=== PATIENT | female | born 1975 | race Caucasian/White ===

== ENCOUNTER 2025-02-13 08:25 | Day surgery (SDC) | payer OTHER ==
[~2025-02-13] VITALS: Ht 160 cm; Wt 57.0 kg
--- NOTE | ~2025-02-13 | OR ---
[facility] [address] [place], [place] [address] Draft DATE OF OPERATION: 02/13/2025 SURGEON: Daniel Schilling DO PREOPERATIVE DIAGNOSIS: Colon cancer screening. POSTOPERATIVE DIAGNOSES: 1. Colon cancer screening with a colonic polyp at 65 cm. 2. Diverticulosis. PROCEDURE PERFORMED: Colonoscopy with cold forceps biopsy of the polyp at 65 cm. ANESTHESIA: IV sedation. ESTIMATED BLOOD LOSS: None. DRAINS: None. COMPLICATIONS: None. DESCRIPTION OF THE PROCEDURE: The patient was brought to the GI lab, placed in supine position. After induction of IV sedation, the patient was then placed in the left lateral position, padded to the satisfaction of anesthesia. The Olympus video colonoscope was then introduced into the rectum, and while insufflating and under direct visualization, the scope was advanced through the rectosigmoid, sigmoid colon, descending colon, transverse colon, into the ascending colon and cecum. The colon was insufflated, and inspection of the mucosal surfaces was carried out. Ascending colon and cecum were without lesions or ulcerations. Scope was brought past the hepatic flexure and the transverse colon. No intrinsic or extrinsic masses, lesions, or ulcerations were noted. Scope was brought back past the splenic flexure into the descending colon. At approximately 65 cm, a flat broad-based polyp was identified. Multiple cold biopsies with cold forceps were utilized, passed off the field for pathologic review. The sigmoid colon was found to have some evidence of diverticulosis, and no bleeding was noted. No other intrinsic PATIENT NAME: ANGELO HERNANDEZ OPERATIVE REPORT DATE OF : 79 REPORT #: [id number] PHYSICIAN: DANIEL SCHILLING DO PCP: HANK MILLER PAC REPORT IS CONFIDENTIAL AND NOT TO BE RELEASED WITHOUT AUTHORIZATION [place] [id number] [place], [place] [address] Draft masses were noted. No diverticulitis was noted as well. The rectosigmoid was unremarkable except for diverticulum as well. The scope was withdrawn. The patient tolerated the procedure well, taken to recovery room in satisfactory condition. DO KESHAWN Miner/KAPIL /[id number] Copies: ~ PATIENT NAME: ANGELO HERNANDEZ OPERATIVE REPORT DATE OF : 79 REPORT #: [id number] PHYSICIAN: DANIEL SCHILLING DO PCP: HANK MILLER PAC REPORT IS CONFIDENTIAL AND NOT TO BE RELEASED WITHOUT AUTHORIZATION
[~2025-02-13 08:25] MED LIST: IBLOOD GLUCOSE TEST STRIP 1 EA TEST VI PRN; LACTATED RINGER'S 1,000 ML IV SCH; LIDOCAINE HCL 1% 5 ML SDV INJ ONE; LIDOCAINE HCL 2% 5 ML SDV ONE
[2025-02-13 08:39] VITALS: BP 107/68
--- NOTE | 2025-02-13 11:12 | NUR ---
02/13/25 1112 Sahara Bradshaw 1108-PATIENT ARRIVED TO PACU ON 2L NC RR EVEN. PATIENT REACTIVE TO VERBAL STIMULI MOVING HANDS. ORIENTED TO PACU VERY DROWSY BACK TO SLEEP. 2L NC RR EVEN 100% SR HR 70'S. IVF INFUSING. ABDOMEN SOFT.
[2025-02-13 11:50] VITALS: BP 114/72
--- NOTE | 2025-02-18 14:01 | PATH ---
[facility] [address] [place], [place] [address] Signed SPECIMEN(S): A COLON POLYP AT 55CM SPECIMEN SOURCE: A. COLON POLYP AT 55CM CLINICAL HISTORY: Screening. Post-polyp, diverticulosis A) polyp FINAL PATHOLOGIC DIAGNOSIS: Colon polyp at 55 cm: - Polypoid fragment of benign colonic mucosa. - No colitis or neoplasm identified. [facility]ALTH SYSTEM MICROSCOPIC EXAMINATION: Histologic sections of all submitted blocks are examined by light microscopy. These findings, together with the gross examination, support the pathologic diagnosis. GROSS DESCRIPTION: The specimen, labeled and designated "Debra, colon polyp at 55 cm," is received in formalin and consists of two kaye soft tissue fragments, ranging from 0.2-0.3 cm. Entirely submitted in (A1). AB (under the direct supervision of a pathologist) The Gross Description was prepared using a voice recognition system. The report was reviewed for accuracy; however, sound-alike word errors, addition and/or deletions may occur. If there is any question about this report, please contact Client Services. ADDITIONAL NOTES: Immunohistochemical and/or in situ hybridization studies if performed in this case included appropriate positive controls that reacted as expected. This test was developed and its performance characteristics determined by [facility]. It has not been cleared or approved by the U.S. Food and Drug Administration. The FDA has determined that such clearance or approval is not necessary. This test is used for clinical purposes. It should not be regarded as investigational or for research. [facility] is certified under the Clinical Laboratory Improvement Amendments of 1988 (CLIA) as qualified to perform high complexity clinical PATIENT NAME: ANGELO HERNANDEZ PATHOLOGY DATE OF : 79 REPORT #: [id number] PHYSICIAN: KHANH LEDBETTER PCP: HANK MILLER PAC REPORT IS CONFIDENTIAL AND NOT TO BE RELEASED WITHOUT AUTHORIZATION [address], [place] [address] Signed laboratory testing. PERFORMING LABORATORY: Technical component was performed by [facility], [address] [place] [id number] (CLIA# [id number]). Professional interpretation was performed by [facility], [address] [place] [id number] (CLIA#: [id number]). Diagnostician: Néstor Yanes MD Pathologist Electronically Signed 02/17/2025 Copies: ~ PATIENT NAME: ANGELO HERNANDEZ PATHOLOGY DATE OF : 79 REPORT #: [id number] PHYSICIAN: KHANH LEDBETTER PCP: HANK MILLER PAC REPORT IS CONFIDENTIAL AND NOT TO BE RELEASED WITHOUT AUTHORIZATION
== END 2025-02-13 11:55 | disposition home or self-care (01) ==
LOC: OPS 08:25 → DS 08:25 → OPS 09:05 → DS 10:35 → OPS 10:35
PROVIDERS: ATTEND Surgery
PROC: 0DBM8ZX Excision of Descending Colon, Via Natural or Artificial Opening Endoscopic, Diagnostic (ICD-10-PCS; principal; 2025-02-13 09:55)
DX: Z12.11 Encounter for screening for malignant neoplasm of colon (principal); K63.5 Polyp of colon; K57.30 Diverticulosis of large intestine without perforation or abscess without bleeding
CPT/HCPCS: 00811; 84703; J2003; J2704; J7121